=== PATIENT | male | born 1995 | race Hispanic/Latino ===

== ENCOUNTER 2021-04-05 10:57 | Emergency (ER) | payer OTHER ==
[~2021-04-05] VITALS: Ht 172.7 cm; Wt 68.2 kg
[2021-04-05] MEDS ORDERED: diphenhydrAMINE 50MG/ML VIAL (J1200) IV ONE (13:05)
[2021-04-05] MEDS ORDERED: KETOROLAC 30 MG/ML 1ML VIAL IV ONE (13:05)
[2021-04-05] MEDS ORDERED: METOCLOPRAMIDE INJ 10MG/2ML VIAL (J2765 PER 1) IV ONE (13:05)
[2021-04-05] MEDS ORDERED: NS 1,000 ML IV ONE (13:05)
--- NOTE | 2021-04-05 13:24 | REPVR ---
PROCEDURE INFORMATION: Exam: CT Head Without Contrast Exam date and time: 04/05/2021 1:10 PM Age: 25 years old Clinical indication: Pain; Headache not specified; Additional info: Severe headache/worst of life TECHNIQUE: Imaging protocol: Computed tomography of the head without contrast. Radiation optimization: All CT scans at this facility use at least one of these dose optimization techniques: automated exposure control; mA and/or kV adjustment per patient size (includes targeted exams where dose is matched to clinical indication); or iterative reconstruction. COMPARISON: No relevant prior studies available. FINDINGS: Brain: Normal. No hemorrhage. Unremarkable white matter. No mass effect. Cerebral ventricles: No ventriculomegaly. Paranasal sinuses: Visualized sinuses are unremarkable. No fluid levels. Mastoid air cells: Visualized mastoid air cells are well aerated. Bones/joints: Unremarkable. No acute fracture. Soft tissues: Unremarkable. IMPRESSION: No acute intracranial abnormality. Electronically signed by: Fang Raygoza On 04/05/2021 13:24:19 PM
[2021-04-05 14:30] VITALS: BP 110/62
== END 2021-04-05 14:39 | disposition home or self-care (01) ==
LOC: M ED 10:57
DX: R51.9 Headache, unspecified (principal); J30.89 Other allergic rhinitis; Z87.820 Personal history of traumatic brain injury; F17.200 Nicotine dependence, unspecified, uncomplicated
CPT/HCPCS: 70450; 96361; 96374; 96375; 99284; J1200; J1885; J2765